=== PATIENT | female | born 1960 | race Caucasian/White ===

== ENCOUNTER 2021-03-18 17:42 | Outpatient (CLI) | payer BC ==
[2021-03-19 09:04] LABS: SARS-CoV-2 PCR by NAA Not Detected (NotDetected)
== END 2021-03-18 17:43 | disposition home or self-care (01) ==
LOC: LABBT 17:42
DX: Z01.818 Encounter for other preprocedural examination (principal); Z20.822 Contact with and (suspected) exposure to COVID-19
CPT/HCPCS: 85014; 93005; 93010; U0003; U0005

== ENCOUNTER 2021-03-21 10:35 | Day surgery (SDC) | payer BC ==
[2021-03-20 13:57] VITALS: BMI 21.4
[2021-03-21] MEDS ORDERED: AFRIN NASAL MIST 15 ML BOT ONE (11:42)
[2021-03-21] MEDS ORDERED: Fentanyl 100 MCG/2 ML VIAL ONE ×2 (12:06→13:48)
[2021-03-21] MEDS ORDERED: Lidocaine 1% w/Epinephrine 1:100K 20 ML VIAL ONE (12:07)
[2021-03-21] MEDS ORDERED: Scopolamine 1.5 mg/72 hour Patch ONE (12:26)
[2021-03-21] MEDS ORDERED: Midazolam HCl 2 mg/2 ml Vial ONE (12:35)
[2021-03-21] MEDS ORDERED: Lidocaine 1% PF 5 ML VIAL ONE (12:36)
[2021-03-21] MEDS ORDERED: Dexamethasone 20 MG/5 ML VIAL ONE (12:36)
[2021-03-21] MEDS ORDERED: PROPOFOL 200 MG/20 ML VIAL ONE (12:36)
[2021-03-21] MEDS ORDERED: Ondansetron PF 4 MG/2 ML Vial ONE (12:36)
[2021-03-21] MEDS ORDERED: Meperidine HCl/PF 25 MG/ML VIAL ONE (12:51)
[2021-03-21] MEDS ORDERED: hydrALAZINE 20 MG/ML VIAL ONE (13:37)
== END 2021-03-21 15:11 | disposition home or self-care (01) ==
LOC: SDC 10:35
PROVIDERS: ATTEND Specialist
PROC: 0NSBXZZ Reposition Nasal Bone, External Approach (ICD-10-PCS; principal; 2021-03-21)
DX: S02.2XXA Fracture of nasal bones, initial encounter for closed fracture (principal); J34.2 Deviated nasal septum; Z90.711 Acquired absence of uterus with remaining cervical stump; Z91.030 Bee allergy status; Z91.09 Other allergy status, other than to drugs and biological substances; Z91.040 Latex allergy status; Z79.1 Long term (current) use of non-steroidal anti-inflammatories (NSAID); Z79.51 Long term (current) use of inhaled steroids; Z79.899 Other long term (current) drug therapy; W55.12XA Struck by horse, initial encounter
CPT/HCPCS: J0360; J1100; J2175; J2250; J2405; J2704; J3010